=== PATIENT | female | born 1970 | race Caucasian/White ===

== ENCOUNTER 2022-07-17 08:17 | Day surgery (SDC) | payer BC ==
[2022-07-13 14:48] VITALS: BMI 40.2
[2022-07-17] MEDS ORDERED: LIDOCAINE HCL/PF 2% SDV 5ML VIAL ONE (09:28)
[2022-07-17 09:50] VITALS: TEMP 97.8
[2022-07-17 10:29] VITALS: BP 130/72; PULSE 70; RESP 18
== END 2022-07-17 10:29 | disposition home or self-care (01) ==
LOC: FASU-ENDO 08:17
PROVIDERS: ATTEND Internal Medicine Gastroenterology
PROC: 0DJD8ZZ Inspection of Lower Intestinal Tract, Via Natural or Artificial Opening Endoscopic (ICD-10-PCS; principal; 2022-07-17 09:22)
DX: Z12.11 Encounter for screening for malignant neoplasm of colon (principal)
CPT/HCPCS: 82962